=== PATIENT | male | born 1990 | race Hispanic/Latino ===

== ENCOUNTER 2017-03-06 20:24 | Emergency (ER) | payer OTHER ==
[2017-03-06 20:36] VITALS: BP 159/40; PULSE 70; RESP 18; TEMP 98.8; O2SAT 100
--- NOTE | 2017-03-06 21:08 | ED PDOC ---
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 Patient denies numbness or decreased range of motion of the thumb. Past Medical History Reviewed: Historical Data, Nursing Documentation, Vital Signs Vital Signs: Last Vital Signs Temp 98.8 F 03/06/17 20:30 Pulse 70 03/06/17 20:30 Resp 18 03/06/17 20:30 BP 159/40 H 03/06/17 20:30 Pulse Ox 100 03/06/17 21:47 - Medical History PMH: No Chronic Diseases - Surgical History Surgical History: No Surg Hx - Family History Family History: States: Unknown Family Hx - Social History Current smoker - smoking cessation education provided: No Alcohol: None Drugs: Denies - Allergies Allergies/Adverse Reactions: Allergies Allergy/AdvReac Type Severity Reaction Status Date / Time No Known Allergies Allergy Verified 03/06/17 20:29 Review of Systems ROS Statement: Except As Marked, All Systems Reviewed And Found Negative (As per HPI, otherwise negative) Constitutional: Negative for: Fever, Chills, Weakness Musculoskeletal: Negative for: Neck Pain, Back Pain, Other (decreased ROM of the thumb) Skin: Positive for: Other (Laceration to the left thumb). Negative for: Rash, Lesions, Jaundice Neurological: Negative for: Numbness Physical Exam - Reviewed Nursing Documentation Reviewed: Yes Vital Signs Reviewed: Yes - Physical Exam Appears: Positive for: Non-toxic, No Acute Distress Head Exam: Positive for: NORMAL INSPECTION Skin: Positive for: Normal Color (2cm flap like laceration noted to the volar distal aspect of the left thumb), Warm, Dry Extremity: Positive for: Normal ROM, Capillary Refill (Intact. Distal sensation and pulses normal. ). Negative for: Pedal Edema Neurologic/Psych: Positive for: Alert, Oriented (x3) - ECG O2 Sat by Pulse Oximetry: 100 (RA) Pulse Ox Interpretation: Normal Medical Decision Making Medical Decision Making: Time: 2104 Initial impression: Laceration Initial plan: --Tetanus 0.5 ml IM --Dermabond application --Reevaluation On reevaluation, patient also mentions that he has a burn to the volar aspect of his right wrist which he sustained today. On exam, + 4 cm oval shaped 2nd degress burn noted to the volar R wrist, with no surrounding erythema, no edema , no d/c, 2+ radial pulses, distal sensation intact. Burn cleaned with NS, silvadene and clean dressing applied. Patient advised to follow up with [place] in 1-2 days without fail. Return to the emergency room at any time for any new or worsening symptoms. Patient states he fully agrees with and understands discharge instructions. States that he agrees with the plan and disposition. Verbalized and repeated discharge instructions and plan. I have given the patient opportunity to ask any additional questions. Scribe Attestation: Documented by Pamela Mendez, acting as a scribe for Kika Pearce PA-C Provider Scribe Attestation: All medical record entries made by the Scribe were at my direction and personally dictated by me. I have reviewed the chart and agree that the record accurately reflects my personal performance of the history, physical exam, medical decision making, and the department course for this patient. I have also personally directed, reviewed, and agree with the discharge instructions and disposition. Disposition - Clinical Impression Clinical Impression: Thumb laceration Counseled Patient/Family Regarding: Diagnosis, Need For Followup - Disposition Disposition: Routine/Home Disposition Time: 21:15 Condition: STABLE Additional Instructions: Thank you for letting us take care of you today. You were treated for thumb laceration. The emergency medical care you received today was directed at your acute symptoms. Return to the Emergency Department if your symptoms worsen, do not improve, or if you have any other problems. Please contact [place] doctor in 2 days for re-evaluation and follow up. Bring any paperwork you were given at discharge with you along with any medications you are taking to your follow up visit. Our treatment cannot replace ongoing medical care by a primary care provider (PCP) outside of the emergency department. Thank you for allowing the [facility] team to be part of your care today. 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 Laceration - Laceration Repair No standard instances Wound Length (In cm): 2 cm Description Of Wound: Clean Wound Cleansed With: Sterile Saline Wound Examination: Irrigated With Saline, No FB With Wound Exploration Wound Closure: Skin Glue Wound Complexity: Simple (Patient tolerated the procedure well. Clean dressing applied.)
[2017-03-06] MEDS ORDERED: Silver Sulfadiazine 1% Cream (20 gm) TOP STA (21:54)
[2017-03-06] MEDS ORDERED: Silver Sulfadiazine 1% CREAM (50 gm) ONE (22:08)
== END 2017-03-06 22:12 | disposition home or self-care (01) ==
LOC: H.ER 20:24
DX: S61.012A Laceration without foreign body of left thumb without damage to nail, initial encounter (principal); W26.0XXA Contact with knife, initial encounter; Y99.0 Civilian activity done for income or pay